=== PATIENT | male | born 1985 | race Two or more races ===

== ENCOUNTER 2017-06-04 21:56 | Emergency (ER) | payer OTHER ==
[~2017-06-04] VITALS: Ht 157.5 cm; Wt 81.6 kg
[2017-06-05] MEDS ORDERED: LIDOCAINE 1% HCL (LOCAL ANESTH.) INJ 20ML MDV ONE (00:48)
[2017-06-05 00:58] VITALS: BP 135/83
== END 2017-06-05 01:27 | disposition home or self-care (01) ==
LOC: ER 21:56
DX: S01.412A Laceration without foreign body of left cheek and temporomandibular area, initial encounter (principal); S00.03XA Contusion of scalp, initial encounter; W22.8XXA Striking against or struck by other objects, initial encounter; Y93.89 Activity, other specified; Y92.89 Other specified places as the place of occurrence of the external cause; Y99.8 Other external cause status
CPT/HCPCS: 12013; 70450; 70486; 72125; 99284; J2001